=== PATIENT | female | born 1980 | race African-American/Black ===

== ENCOUNTER 2016-12-27 19:45 | Emergency (ER) | payer OTHER ==
[~2016-12-27] VITALS: Ht 170.2 cm; Wt 84.0 kg
[~2016-12-27 19:45] MED LIST: Z.0.NO CURRENT MEDS
[2016-12-27 19:47] VITALS: BP 130/65; PULSE 80; RESP 18; TEMP 97.6; O2SAT 100
--- NOTE | 2016-12-27 21:27 | PD ---
HPI . intermittent chest pain for several weeks Chief Complaint: Pain: Acute or Chronic Time Seen by Provider: 21:26 Travel History International Travel<30 days: No Contact w/Intl Traveler<30days: No Traveled to known affect area: No History of Present Illness HPI 36-year-old female with no significant past medical history here with complaints of intermittent chest pain that is very sharp in nature. Patient said she has been having occasional intermittent sharp chest pain that starts in the sternum and then moves to the left and then the right side. She says sometimes the pain could be in the right or left side there is no rhyme or reason. She has recently gone to another hospital where she had an extensive workup including EKG, blood work and chest x-ray. They were all negative. This was 2 weeks ago. Patient says that she has not physically seen her primary care provider since last year, however recent labs were ordered and she does not have those results yet. She is here wanting to know why she is having this discomfort. Of note she was prescribed ibuprofen during her last hospital visit for what she seems to describe his costochondritis, but tells me that she never took it as prescribed. The time of examination patient denies any chest pain. She denies any fever, chills, cold symptoms, nausea, vomiting, diaphoresis, diarrhea or abdominal pain. She denies any fatigue or weakness. At this time she is totally asymptomatic and tells me she just wants to get a diagnosis of what is going on with her. PFSH Past Medical History Medical History: Denies Significant Hx Diminished Hearing: No ?: Not LMP: 12/04/16 Past Surgical History Surgical History: No Previous Surgery Social History Alcohol Use: Yes (RARE) Tobacco Use: No Substance Use: Yes (OCC MARIJUANA) Allergies-Medications (Allergen,Severity, Reaction): Coded Allergies: Bactrim (Verified Adverse Reaction, Intermediate, Rash, 12/27/16) Reported Meds & Prescriptions Reported Meds & Active Scripts Active No Active Prescriptions or Reported Medications Review of Systems General / Constitutional: No: Fever Eyes: No: Visual changes HENT: No: Headaches Cardiovascular: No: Chest Pain or Discomfort, Palpitations, Irregular Rhythm Respiratory: No: Shortness of Breath Gastrointestinal: No: Abdominal Pain Genitourinary: No: Dysuria Musculoskeletal: No: Pain Skin: No Rash Neurologic: No: Weakness Psychiatric: No: Depression Endocrine: No: Polydipsia Hematologic/Lymphatic: No: Easy Bruising Physical Exam Narrative GENERAL: AAO x 3, no acute distress, Well-nourished, well-developed patient. Very comfortable on the bed. No acute distress. SKIN: Warm and dry. No visible rashes or bruising. HEAD: Normocephalic and atraumatic. EYES: No scleral icterus. No injection or drainage. EOM intact, PERRLA ENT: No nasal drainage noted. Mucous membranes pink. Airway patent. NECK: Supple, trachea midline. No JVD. CARDIOVASCULAR: Regular rate and rhythm without murmurs, gallops, or rubs. slightly reproducible pain on palpation of sternum. RESPIRATORY: Breath sounds equal bilaterally. No accessory muscle use. No rhonchi or rales. GASTROINTESTINAL: Abdomen soft, non-tender, nondistended. EXTREMITIES: No cyanosis or edema. BACK: Nontender without obvious deformity. No CVA tenderness. PSYCH: AAO x 3, normal affect. Data Data Last Documented VS Vital Signs Date Time Temp Pulse Resp B/P Pulse Ox O2 Delivery O2 Flow Rate FiO2 12/27/16 21:45 82 18 119/71 98 12/27/16 19:47 97.6 Orders Electrocardiogram (12/27/16 20:09) MDM Medical Decision Making Medical Screen Exam Complete: Yes Emergency Medical Condition: Yes Medical Record Reviewed: Yes Differential Diagnosis Costochondritis, less likely ACS, possible fibromyalgia Narrative Course 36-year-old female with no significant past medical history here with complaints of intermittent chest pain that is very sharp in nature. Patient said she has been having occasional intermittent sharp chest pain that starts in the sternum and then moves to the left and then the right side. She says sometimes the pain could be in the right or left side there is no rhyme or reason. She has recently gone to another hospital where she had an extensive workup including EKG, blood work and chest x-ray. They were all negative. This was 2 weeks ago. Patient says that she has not physically seen her primary care provider since last year, however recent labs were ordered and she does not have those results yet. She is here wanting to know why she is having this discomfort. Of note she was prescribed ibuprofen during her last hospital visit for what she seems to describe his costochondritis, but tells me that she never took it as prescribed. The time of examination patient denies any chest pain. She denies any fever, chills, cold symptoms, nausea, vomiting, diaphoresis, diarrhea or abdominal pain. She denies any fatigue or weakness. At this time she is totally asymptomatic and tells me she just wants to get a diagnosis of what is going on with her. Patient seen and examined. Recommend ECG at this moment to make sure there is no type of arrhythmia or acute coronary syndrome. EKG was done. Dr. Chow was in a procedure therefore I asked opinion of Dr. Martin and discussed the case with him, Agreed that patient can be discharged home and f/u with PCP. She is stable and safe for discharge. Patient verbalized understanding of instructions, questions were answered, and thanked me for their care. I advised them if their condition worsens, please return to the nearest emergency room for further care. Diagnosis Primary Impression: Atypical chest pain Patient Instructions: General Instructions Additional Instructions: Please return to emergency department if your symptoms return or worsen. Follow up with your primary care provider. Med/Other Pt SpecificInfo: No Change to Meds Scripts No Active Prescriptions or Reported Meds Disposition: DISCHARGE HOME Condition: Stable Yina Joseph Dec 27, 2016 21:27
[2016-12-27 21:45] VITALS: BP 119/71; PULSE 82; RESP 18; O2SAT 98
--- NOTE | 2016-12-28 07:38 | EKG ---
Date Performed: 12/27/2016 Time Performed: 20:14:34 PTAGE: 36 years EKG: Sinus rhythm POSSIBLE LEFT ATRIAL ENLARGEMENT INCOMPLETE RIGHT BUNDLE BRANCH BLOCK NONSPECIFIC T-WAVE ABNORMALITY BORDERLINE ECG PREVIOUS TRACING : 06/03/2003 19.05 Compared to previous tracing, incomplete right bundle branc h block pattern is now evident. DOCTOR: Dedrick Bishop Interpretating Date/Time 12/28/2016 07:37:08
== END 2016-12-27 22:32 | disposition home or self-care (01) ==
LOC: NEPC 19:45
DX: R07.89 Other chest pain (principal); I45.10 Unspecified right bundle-branch block
CPT/HCPCS: 93005